=== PATIENT | female | born 1990 | race Caucasian/White ===

== ENCOUNTER → 2021-10-25 09:26 | Outpatient (BNVA) | payer BC, SELFPAY | PROVIDERS: Visit Provider Obstetrics & Gynecology | DX: Z36.87 Encounter for antenatal screening for uncertain dates (principal) | CPT/HCPCS: 76805 ==

== ENCOUNTER → 2021-10-30 13:04 | Outpatient (BNVA) | payer BC, MEDICAID, SELFPAY | PROVIDERS: Visit Provider Obstetrics & Gynecology | DX: O09.92 Supervision of high risk pregnancy, unspecified, second trimester (principal) | CPT/HCPCS: 80307 ==

== ENCOUNTER → 2021-11-03 10:07 | Outpatient (BNVA) | payer BC, MEDICAID, SELFPAY | PROVIDERS: Visit Provider Obstetrics & Gynecology | DX: Z34.90 Encounter for supervision of normal pregnancy, unspecified, unspecified trimester (principal) | CPT/HCPCS: 81000 ==

== ENCOUNTER → 2021-11-24 08:51 | Outpatient (BNVA) | payer BC, MEDICAID, SELFPAY | PROVIDERS: Visit Provider Obstetrics & Gynecology | DX: O09.90 Supervision of high risk pregnancy, unspecified, unspecified trimester (principal); Z3A.00 Weeks of gestation of pregnancy not specified | CPT/HCPCS: 81000; 82950 ==

== ENCOUNTER → 2021-12-19 09:46 | Outpatient (BNVA) | payer BC, MEDICAID, SELFPAY | PROVIDERS: Visit Provider Obstetrics & Gynecology | DX: O09.90 Supervision of high risk pregnancy, unspecified, unspecified trimester (principal); Z3A.00 Weeks of gestation of pregnancy not specified | CPT/HCPCS: 81000; 85027 ==

== ENCOUNTER → 2022-01-02 09:52 | Outpatient (BNVA) | payer BC, MEDICAID, SELFPAY | PROVIDERS: Visit Provider Obstetrics & Gynecology | DX: O09.90 Supervision of high risk pregnancy, unspecified, unspecified trimester (principal); Z3A.00 Weeks of gestation of pregnancy not specified | CPT/HCPCS: 81000 ==

== ENCOUNTER → 2022-01-19 10:30 | Outpatient (BNVA) | payer BC, MEDICAID, SELFPAY | PROVIDERS: Visit Provider Obstetrics & Gynecology | DX: O09.90 Supervision of high risk pregnancy, unspecified, unspecified trimester (principal); Z87.59 Personal history of other complications of pregnancy, childbirth and the puerperium; Z3A.00 Weeks of gestation of pregnancy not specified | CPT/HCPCS: 81000 ==

== ENCOUNTER 2022-01-26 14:02 | Outpatient (CLI) | payer BC, MEDICAID, SELFPAY ==
--- NOTE | 2022-01-26 14:24 | US_ITS ---
WS: [id number] BIOPHYSICAL PROFILE AMNIOTIC FLUID HISTORY: Z87.59 - Personal history of other complications of ... COMPARISON: 10/25/2021 Cardiac activity: 153 bpm. Cervix: closed. Placenta: Anterior, no previa or abruption. Placenta grade: 2 Parameters are as follows: Breathin Movement: 2 Tone: 2 Fluid volume: 2 Amniotic fluid index: 15.0 cm; largest vertical pocket 5.4 cm. US/US OB BPP wo NST 70019 IMPRESSION: 1. Biophysical profile score: 8/8. 2. Normal amniotic fluid index.
== END 2022-01-26 14:03 | disposition home or self-care (01) ==
LOC: RAD 14:03
PROVIDERS: Visit Provider Obstetrics & Gynecology
DX: Z87.59 Personal history of other complications of pregnancy, childbirth and the puerperium (principal)
CPT/HCPCS: 76819; 81000

== ENCOUNTER 2022-01-26 14:55 | Outpatient (CLI) | payer BC, MEDICAID, SELFPAY ==
[2022-01-26] MEDS: betamethasone susp 6 mg/mL 5 mL 12 MG IM (15:17)
== END 2022-01-26 14:56 | disposition home or self-care (01) ==
LOC: OPOB 14:58
PROVIDERS: Visit Provider Obstetrics & Gynecology
DX: O26.899 Other specified pregnancy related conditions, unspecified trimester (principal); Z3A.00 Weeks of gestation of pregnancy not specified
CPT/HCPCS: 96372; J0702

== ENCOUNTER 2022-01-27 14:20 | Outpatient (CLI) | payer BC, MEDICAID, SELFPAY ==
[2022-01-27 14:30] VITALS: BMI 34.7
[2022-01-27 14:33] VITALS: RESP 16; TEMP 36.7
[2022-01-27 14:38] VITALS: BP 130/78; PULSE 94
[2022-01-27 14:54] VITALS: BP 125/77; PULSE 102
[2022-01-27] MEDS: betamethasone susp 6 mg/mL 5 mL 12 MG IM (14:54)
[2022-01-27 15:14] VITALS: BP 125/77; PULSE 102; RESP 16
== END 2022-01-27 15:17 | disposition home or self-care (01) ==
LOC: OPOB 14:25 → OBGYN 14:26
PROVIDERS: Visit Provider Obstetrics & Gynecology
DX: O26.899 Other specified pregnancy related conditions, unspecified trimester (principal); Z3A.00 Weeks of gestation of pregnancy not specified
CPT/HCPCS: 59025; J0702

== ENCOUNTER 2022-01-30 10:51 | Outpatient (CLI) | payer BC, MEDICAID, SELFPAY ==
--- NOTE | 2022-01-30 10:15 | US_ITS ---
WS: [id number] BIOPHYSICAL PROFILE AMNIOTIC FLUID HISTORY: Evaluate for complications of . COMPARISON: 01/26/2022 Cardiac activity: 153 bpm. Cervix: closed. Placenta: Anterior, no previa or abruption. Placenta grade: 2 Parameters are as follows: Breathin Movement: 2 Tone: 2 Fluid volume: 2 Amniotic fluid index: 10.1 cm which is between the fifth and 50th percentiles. Largest vertical pocke t of amniotic fluid 4.6 cm. US/US OB BPP wo NST 20536 IMPRESSION: 1. Biophysical profile score: 8/8. 2. Normal amniotic fluid index.
== END 2022-01-30 10:52 | disposition home or self-care (01) ==
LOC: RAD 10:54
PROVIDERS: Visit Provider Obstetrics & Gynecology
DX: Z87.59 Personal history of other complications of pregnancy, childbirth and the puerperium (principal)
CPT/HCPCS: 76819; 81000

== ENCOUNTER 2022-02-06 09:44 | Outpatient (CLI) | payer BC, MEDICAID, SELFPAY ==
--- NOTE | 2022-02-06 10:15 | US_ITS ---
WS: [id number] BIOPHYSICAL PROFILE AMNIOTIC FLUID HISTORY: Prior complication. COMPARISON: 01/30/2022 Cardiac activity: 164 bpm. Cervix: closed. Placenta: Anterior, no previa. Placenta grade: 1 Parameters are as follows: Breathin Movement: 2 Tone: 2 Fluid volume: 2 Amniotic fluid index: 16.7 cm which is near the 50th percentile. Largest vertical pocket of amniotic fluid is 5.6 cm. US/US OB BPP wo NST 24167 IMPRESSION: 1. Biophysical profile score: 8/8. 2. Normal amniotic fluid index.
== END 2022-02-06 09:45 | disposition home or self-care (01) ==
PROVIDERS: Visit Provider Obstetrics & Gynecology
DX: Z87.59 Personal history of other complications of pregnancy, childbirth and the puerperium (principal)
CPT/HCPCS: 76819

== ENCOUNTER 2022-02-07 21:00 | Outpatient (CLI) | payer BC, MEDICAID, SELFPAY ==
[2022-02-07] VITALS (18 sets, daily range): BP systolic 121–137; BP diastolic 76–88; PULSE 87–123; RESP 17; O2SAT 97–98; BMI 36.4
[2022-02-07 21:32] LABS: Actim Prom Negative
[2022-02-07 21:32] LABS: Nitrazine Paper, PH Negative
--- NOTE | 2022-02-07 21:35 | USR_ITS ---
PROCEDURE INFORMATION: Exam: US Biophysical Profile Without Non-Stress Test Exam date and time: 02/07/2022 10:04 PM Age: 31 years old Clinical indication: Screening exam; Routine US screening of fetus; Third trimester (=28 weeks 0 days); ; Patient HX: Decreased movement TECHNIQUE: Imaging protocol: US biophysical profile without non-stress testing. COMPARISON: US OB BPP NST [id number] 02/06/2022 9:54 AM FINDINGS: Gestation: Single intrauterine gestation. heart rate: 133 bpm. Presentation: Cephalic presentation. Placenta: Anterior grade 1 placenta. Amniotic fluid index: 18.0 cm. BIOPHYSICAL PROFILE: breathing movement (BPP): 0 out of 2. No breathing motion visualized. body movement (BPP): 2 out of 2. tone (BPP): 2 out of 2. Amniotic fluid (BPP): 2 out of 2. MATERNAL ANATOMY: Cervix: The cervix is obscured by the head. US/US OB BPP NST 74182 IMPRESSION: 1. Biophysical profile score of 6/8. No breathing motion visualized.
[2022-02-07 22:01] LABS: Add Urine Culture? No; Bacteria Urine 2+ /hpf; Bilirubin Urine Neg (Negative); Blood Urine Neg (Negative); Glucose Urine UA Norm (Normal); Ketones Urine Negative (Negative); Leukocyte Esterase Urine 2+ (Negative); Nitrate Urine Negative (Negative); Protein Urine Neg (Negative); RBC Urine 0-4 /hpf (0-2); Squamous Epithelial Cell Urine 15-25 /hpf (0-5); Urine Appearance SL Hazy (CLEAR); Urine Color Yellow (Yellow); Urobilinogen Urine Norm (Negative); WBC Urine 55-80 /hpf (0-5); pH Urine 6 (5-7)
[2022-02-07] MEDS: NIFEdipine 10 mg Capsule 30 MG PO (23:38)
[2022-02-08] VITALS (77 sets, daily range): BP systolic 104–135; BP diastolic 57–81; PULSE 73–125; RESP 17; TEMP 36.4–36.5; O2SAT 97–100
[2022-02-08] MEDS: terbutaline 1 mg/mL INJ 0.25 MG SUBCUT (01:10)
[2022-02-08 01:41] LABS: Basophils % 0.2 %; Eosinophils # 0.1 10^3/uL (0.0-0.8); Eosinophils % 0.8 %; Hematocrit 36.4 % (37.0-47.0); Hemoglobin 12.3 g/dL (11.5-15.3); Lymphocytes # 3.8 10^3/uL (0.8-4.8); Lymphocytes % 23.5 %; Mean Corpuscular HGB Conc 33.8 g/dL (30.0-36.0); Mean Corpuscular Hemoglobin 28.9 pg (28.0-34.0); Mean Corpuscular Volume 85.4 fl (81-99); Mean Platelet Volume 11.3 fL (7.4-10.4); Monocytes # 1.1 10^3/uL (0.2-0.9); Neutrophils # 10.92 10^3/uL (1.8-7.7); Neutrophils % 67.9 %; Nucleated Red Blood Cells % 0 %; Platelet Count 322 10^3/cmm (130-400); Red Blood Count 4.26 10^6/uL (4.1-5.3); Red Cell Distribution Width 12.9 % (12.1-15.1); White Blood Count 16.1 10^3/uL (4.0-10.0)
[2022-02-08] MEDS: dextrose 5%-lactated ringers 1,000 ML 125 ML IV ×2 (01:54→12:13)
[2022-02-08] MEDS: ampicillin 2,000 MG in sodium chloride 0.9% (plus) 50 ML 100 MG IV (01:54)
[2022-02-08] MEDS: alum-mag-hydroxide-sime 30 mL UDC PO ×3 (01:56→13:07)
[2022-02-08] MEDS: betamethasone susp 6 mg/mL 5 mL 12 MG IM (02:29)
[2022-02-08] MEDS: ampicillin 1,000 MG in sodium chloride 0.9% (plus) 50 ML 100 MG IV ×2 (06:14→10:16)
[2022-02-08] MEDS: NIFEdipine 10 mg Capsule 30 MG PO (10:54)
--- NOTE | 2022-02-22 13:33 | P.SS_ITS ---
Short Stay Summary Providers Date of Admit/Discharge: 02/22/22 Attending Provider: Nicho Mac MD Chief Complaint: Decreased Movement, Possible SROM HPI History of Present Illness Diamond Waller is a 31 year old female Gestational age of 35 weeks 3 days came into labor and delivery triage complaining of decreased movements and some contractions Review of Systems General: Reports: 10 or more systems reviewed and unremarkable except in HPI and below Narrative: movement: no Const: Denies: fever(s) or chills Card: Denies: chest pain, palpitations, irregular heart rhythm or syncope Resp: Denies: dyspnea GI: Denies: abdominal pain, nausea or vomiting : Reports: pelvic pain (Pressure); Denies: flank pain, dysuria, urinary frequency or urinary urgency Musc: Denies: back pain or extremity swelling Skin/Breast: Denies: rash, pruritus, breast pain, nipple discharge or breast mass Neuro: Denies: headache(s), difficulty walking, dizziness or restless legs Psych: Denies: anxiety, depression or mood swings Endo: Denies: polyuria, tired all the time, cold intolerance or heat intolerance Calvin/Lymph: Denies: easy bruising, easy bleeding, petechiae or purpura All/Imm: Denies: urticaria Home Meds/Allergies Home Medications and Allergies Home Medications Medication Instructions Recorded Confirmed Type prenat.vits,beau,xsu-aoaz-mvspo 1 tab PO DAILY 12/19/21 02/20/22 History famotidine 20 mg tablet (Pepcid) 20 mg PO BID 01/26/22 02/20/22 History Allergies Allergy/AdvReac Type Severity Reaction Status Date / Time cefaclor [From [facility]] Allergy Severe rash and Verified 02/20/22 08:33 tingling in throat PFSH Acute PFSH: Family History Mother Diabetes Hyperlipidemia Hypertension Thyroid condition Grandmother Heart disease maternal Family/Other Breast cancer maternal cousins x3, age onset in 40's Denies family history of Colon cancer Ovarian cancer Clotting disorder Anesthesia complication Bleeding disorder Uterine cancer Stroke Social History Smoking and tobacco status: never smoked Alcohol intake: never Female Reproductive History: Date of last menstrual period: 06/06/21 : 17 Vitals/I&O/Wt Last Vital Signs Temp 97.7 F 02/08/22 12:00 Pulse 102 H 02/08/22 13:30 Resp 17 02/08/22 13:30 BP 121/57 02/08/22 13:30 Pulse Ox 97 02/08/22 13:30 Physical Exam Const: COMMON NORMALS: no acute distress and well nourished EXAM LIMITATIONS: no altered mental status GENERAL APPEARANCE: cooperative and well hydrated ORIENTATION/CONSCIOUSNESS: Yes awake, Yes oriented to person, Yes oriented to place and Yes oriented to time GI: COMMON NORMALS: Soft to palpation INSPECTION: Yes gravid abdomen PALPATION: Yes Soft to palpation and No Tenderness to palpation present (GI) : OB/EXTERNAL & SPECULUM: external exam normal; No no herpetic lesions MANUAL OB EXAM: dilated 5 cm, effaced 50% and station (-3) Neuro: SENSORIUM/ORIENTATION: Yes oriented to person, Yes oriented to place and Yes oriented to time Hospital Course Admission Diagnoses False labor Hospital Course Mrs. Waller 31-year-old female came to labor and delivery referring decreased movement, some contractions. She was on observation and treated for labor. No cervical changes were noted. SSS Data Data Completed and Pending: Completed Studies During Hospitalization Category Date Time Status US OB BPP w o NST 95870 Stat Ultrasound 02/07/22 21:35 Completed Discharge Plan Discharge Patient Disposition: Home Prescriptions: Continued prenat.vits,beau,mus-etlq-byifi Tablet 1 tab PO DAILY 0RF Label Comments: when able to hold down famotidine [Pepcid] 20 mg tablet 20 mg PO BID 0RF Discharge Orders: Discharge Order (Routine); Ordered 02/08/22 Ordered By: Nicho Mac Referrals: Nicho Mac MD [Physician] - 02/13/22 9:15 am (You have an appointment with Dr. Mac on Sunday February 13, 2022 at 9:15 a.m. You also have an appointment for an NST and BPP ultrasound to follow appointment. ) Patient Instructions: Labor (DC), Movement (DC), Kick Counts in (DC), OB Undelivered Discharge Activity Restrictions/Additional Instructions: Keep all scheduled appointments with Dr. Mac. If contractions begin again and are painful, return to OB for evaluation. If you are having decreased movement, return to OB. Return to OB if your water breaks or if you have vaginal bleeding. Call [facility] or OB department for any questions or concerns. Discharge Date/Time: 02/08/22 13:29 Attestations Medical Necessity Statement*: In my professional opinion per observation diagnosis. Time Spent in Patient Care*: greater than 30 min Quality Metrics Clinical Quality Measures: [ No reported AMI, CVA or VTE this stay ] Coding Level of Care Code Acute Tank Car Cleaner for Franca De Leon
== END 2022-02-08 13:29 | disposition home or self-care (01) ==
LOC: OPOB 21:01 → OBGYN 02-08 01:04
PROVIDERS: Visit Provider Obstetrics & Gynecology
DX: O36.8190 Decreased fetal movements, unspecified trimester, not applicable or unspecified (principal); Z3A.00 Weeks of gestation of pregnancy not specified; N89.8 Other specified noninflammatory disorders of vagina
CPT/HCPCS: 36415; 59025; 76819; 81001; 83986; 84112; 85025; 96372; 99211; J0290; J0702; J3105

== ENCOUNTER 2022-02-09 23:27 | Outpatient (CLI) | payer BC, MEDICAID, SELFPAY ==
[2022-02-08 08:00] VITALS: TEMP 36.4
[2022-02-08 12:00] VITALS: TEMP 36.5
[2022-02-09 23:30] VITALS: BMI 36.6
[2022-02-09 23:34] VITALS: BP 136/82; PULSE 91; TEMP 36.7
[2022-02-09 23:50] VITALS: BP 126/77; PULSE 76
[2022-02-10 00:04] LABS: Add Urine Culture? No; Bacteria Urine TRACE /hpf; Bilirubin Urine Neg (Negative); Blood Urine Neg (Negative); Glucose Urine UA Norm (Normal); Ketones Urine Negative (Negative); Leukocyte Esterase Urine Negative (Negative); Mucus Urine 1+ /hpf; Nitrate Urine Negative (Negative); Protein Urine Neg (Negative); RBC Urine 0-4 /hpf (0-2); Urine Appearance Clear (CLEAR); Urine Color Yellow (Yellow); Urobilinogen Urine Norm (Negative); pH Urine 6 (5-7)
[2022-02-10 00:05] VITALS: BP 130/73; PULSE 85
[2022-02-10 00:19] VITALS: BP 123/74; PULSE 76
[2022-02-10 00:34] VITALS: BP 119/73; PULSE 71
[2022-02-10 00:45] VITALS: BP 119/73; PULSE 71
== END 2022-02-10 00:51 | disposition home or self-care (01) ==
LOC: OPOB 23:28 → OBGYN 23:40
PROVIDERS: Visit Provider Obstetrics & Gynecology
DX: O26.899 Other specified pregnancy related conditions, unspecified trimester (principal); Z3A.00 Weeks of gestation of pregnancy not specified; R10.2 Pelvic and perineal pain; M54.9 Dorsalgia, unspecified
CPT/HCPCS: 59025; 81001; 99211

== ENCOUNTER 2022-02-13 10:08 | Outpatient (CLI) | payer BC, MEDICAID, SELFPAY ==
--- NOTE | 2022-02-13 10:00 | US_ITS ---
WS: [id number] BIOPHYSICAL PROFILE AMNIOTIC FLUID HISTORY: History of complicated pregnancies. COMPARISON: 02/07/2022 Cardiac activity: 138 bpm. Cervix: Obscured by the head. Parameters are as follows: Breathin Movement: 2 Tone: 2 Fluid volume: 2 ML fluid index: 12.9 cm which is near the 50th percentile. Largest vertical pocket of amniotic fluid 4.4 cm. US/US OB BPP wo NST 08635 IMPRESSION: 1. Biophysical profile score: 8/8. 2. Normal amniotic fluid index.
== END 2022-02-13 10:09 | disposition home or self-care (01) ==
PROVIDERS: Visit Provider Obstetrics & Gynecology
DX: Z87.59 Personal history of other complications of pregnancy, childbirth and the puerperium (principal)
CPT/HCPCS: 76819; 81000; 87081

== ENCOUNTER 2022-02-15 12:18 | Outpatient (CLI) | payer BC, MEDICAID, SELFPAY ==
[2022-02-15] VITALS (7 sets, daily range): BP systolic 115–125; BP diastolic 67–72; PULSE 85–94; RESP 17; BMI 35.9
--- NOTE | 2022-02-15 13:06 | US_ITS ---
WS: [id number] BIOPHYSICAL PROFILE AMNIOTIC FLUID HISTORY: decreased movement COMPARISON: 02/13/2022 Cardiac activity: 138 bpm. Cervix: closed. Placenta: Anterior, no previa or abruption. Placenta grade: 1 Parameters are as follows: Breathin Movement: 2 Tone: 2 Fluid volume: 2 Amniotic fluid index: 14.9 cm. Near the 50th percentile. Largest vertical pocket of amniotic fluid is 5.6 cm. US/US OB BPP wo NST 51891 IMPRESSION: 1. Biophysical profile score: 8/8. 2. Normal amniotic fluid index.
== END 2022-02-15 15:00 | disposition home or self-care (01) ==
LOC: OPOB 12:19 → OBGYN 12:20
PROVIDERS: Visit Provider Obstetrics & Gynecology
DX: O36.8190 Decreased fetal movements, unspecified trimester, not applicable or unspecified (principal); Z3A.00 Weeks of gestation of pregnancy not specified
CPT/HCPCS: 59025; 76819; 83986; 99211

== ENCOUNTER 2022-02-20 | Outpatient (CLI) | payer BC, MEDICAID, SELFPAY | END 2022-02-20 23:59 | disposition home or self-care (01) | LOC: RAD 03-12 16:37 | PROVIDERS: Visit Provider Obstetrics & Gynecology | DX: O09.90 Supervision of high risk pregnancy, unspecified, unspecified trimester (principal) | CPT/HCPCS: 81000 ==

== ENCOUNTER 2022-02-20 19:13 | Inpatient (IN) | payer BC, MEDICAID, SELFPAY ==
[2022-02-20] VITALS (22 sets, daily range): BP systolic 108–140; BP diastolic 57–84; PULSE 67–87; RESP 16–17; TEMP 35.1–36.6; O2SAT 99; BMI 36.2
--- NOTE | 2022-02-20 10:28 | US_ITS ---
WS: [email or web address] BIOPHYSICAL PROFILE AMNIOTIC FLUID HISTORY: well-being. COMPARISON: 02/15/2022 Cardiac activity: 131 bpm. Cervix: Not visualized. Completely obscured by the head. Placenta: Anterior, no previa or abruption. Placenta grade: 1 Vertex presentation. Parameters are as follows: Breathin Movement: 2 Tone: 2 Fluid volume: 2 Amniotic fluid index: 14.3 cm which is at the 50th percentile. Largest vertical pocket of amniotic fl uid is 5.0 cm. US/US OB BPP wo NST 96709 IMPRESSION: 1. Biophysical profile score: 8/8. 2. Normal amniotic fluid index.
[2022-02-20] MEDS: alum-mag-hydroxide-sime 30 mL UDC PO ×3 (10:44→18:19)
[2022-02-20 10:48] LABS: Basophils # 0.1 10^3/uL (0.0-0.1); Basophils % 0.5 %; Eosinophils # 0.1 10^3/uL (0.0-0.8); Eosinophils % 0.8 %; Hematocrit 37.8 % (37.0-47.0); Hemoglobin 12.4 g/dL (11.5-15.3); Lymphocytes # 2.2 10^3/uL (0.8-4.8); Lymphocytes % 16.9 %; Mean Corpuscular HGB Conc 32.8 g/dL (30.0-36.0); Mean Corpuscular Hemoglobin 29.2 pg (28.0-34.0); Mean Corpuscular Volume 88.9 fl (81-99); Mean Platelet Volume 11.4 fL (7.4-10.4); Monocytes % 7.8 %; Neutrophils # 9.55 10^3/uL (1.8-7.7); Neutrophils % 73.5 %; Nucleated Red Blood Cells % 0 %; Platelet Count 312 10^3/cmm (130-400); Red Blood Count 4.25 10^6/uL (4.1-5.3); Red Cell Distribution Width 13.5 % (12.1-15.1)
[2022-02-20] MEDS: fentaNYL 50 mcg/mL INJ 2mL IVP (18:26)
[2022-02-20] MEDS: oxytocin 30 UNIT/500 ML BAG 600 UNIT IV (19:06)
[2022-02-20] MEDS: lidocaine 2% INJ 20 mL INJECTION (19:10)
--- NOTE | 2022-02-20 19:42 | PM.DELIVERY ---
Delivery Note: Date of delivery: February 20, 2022 Pre-delivery diagnoses: iup@37 weeks, active labor Post-delivery diagnoses: same-delivered Procedure: Delivering Physician: Carol Estimated blood loss (mL): 15 Findings: term male in the NATASHA presentation with a compound right hand Pre-Delivery Course: The patient was admitted in active labor. She had AROM performed at 6-7 cm dilation. She had complete cervical dilation and began to push. Delivery: The patient had complete cervical dilation and began to push. The head delivered in the NATASHA with a compound right hand position over an intact perineum under no anesthesia. The nose and mouth were bulb suctioned. The shoulders and body delivered atraumatically. The baby was placed onto the mother's abdomen. The cord was clamped and cut. Cord blood was obtained. The placenta delivered spontaneously. It was inspected and found to be intact. Inspection of the perineum revealed a small first-degree laceration. This was repaired with a single subcuticular stitch. Estimated blood loss 15 mL. Apgars on baby were 8 at 1 minute and 8 at 5 minutes. Weight of baby is 6 pounds 4 ounces. Mother and baby were stable post delivery. History History History 17 Term 0 Miscarriages/Ectopic 14 2 Living Children 1 Coding Level of Care Code Acute Field Identification Specialist for Chg Moises
[2022-02-20] MEDS: ibuprofen 800 mg tablet PO (21:17)
[2022-02-20] MEDS: benzocaine-menthol 78 gm Canister 1 SPRAY TOPICAL (21:18)
[2022-02-20] MEDS: lanolin oint 7 gm 1 APPLIC TOPICAL (21:18)
[2022-02-21] VITALS (8 sets, daily range): BP systolic 107–122; BP diastolic 58–78; PULSE 68–84; TEMP 36.9–37.1
[2022-02-21] MEDS: acetaminophen 325 mg Tablet 650 MG PO (03:31)
[2022-02-21 09:21] LABS: Hematocrit 32.2 % (37.0-47.0); Hemoglobin 10.5 g/dL (11.5-15.3); Mean Corpuscular HGB Conc 32.6 g/dL (30.0-36.0); Mean Corpuscular Hemoglobin 28.5 pg (28.0-34.0); Mean Corpuscular Volume 87.5 fl (81-99); Mean Platelet Volume 11.7 fL (7.4-10.4); Platelet Count 282 10^3/cmm (130-400); Red Blood Count 3.68 10^6/uL (4.1-5.3); Red Cell Distribution Width 13.3 % (12.1-15.1); White Blood Count 12.3 10^3/uL (4.0-10.0)
--- NOTE | 2022-02-21 09:21 | PM.PN ---
Vitals/I&O/Wt Last Vital Signs Temp 97.9 F 02/20/22 23:20 Pulse 70 02/21/22 05:43 Resp 16 02/20/22 18:26 BP 116/71 02/21/22 05:43 Pulse Ox 99 02/20/22 14:49 02/20/22 02/21/22 02/21/22 22:59 06:59 14:59 Output Total 400 / 400 Balance -400 / -400 Weight last 48 hrs Weight 218 lb Physical Exam Narrative: The patient has no concerns. Pain is well controlled. normal lochia. Breast feeding. Const: COMMON NORMALS: no acute distress, patient oriented x3, no limitations, healthy appearing, alert and well nourished GENERAL APPEARANCE: cooperative, comfortable, well kempt and well developed ORIENTATION/CONSCIOUSNESS: Yes awake, Yes oriented to person, Yes oriented to place and Yes oriented to time Resp: COMMON NORMALS: normal respiratory effort EFFORT & INSPECTION: Yes able to speak in complete sentences GI: COMMON NORMALS: Soft to palpation and non-tender PALPATION: Yes Soft to palpation Extremity: COMMON NORMALS: no calf tenderness Neuro: COMMON NORMALS: patient oriented x3 SENSORIUM/ORIENTATION: Yes alert, Yes oriented to person, Yes oriented to place and Yes oriented to time Psych: APPEARANCE: Yes well kempt Data : 02/20/22 10:35 Attestations Medical Necessity Statement*: she will go home tomorrow Coding Level of Care Code Acute Instructional Technology Instructor for Franca De Leon
[2022-02-21] MEDS: prenatal vitamin Capsule 1 CAP PO (09:58)
[2022-02-21] MEDS: docusate sodium 100 mg Capsule PO (09:58)
[2022-02-21] MEDS: ibuprofen 800 mg tablet PO ×3 (09:58→21:23)
[2022-02-21] MEDS: famotidine 20 mg Tablet PO (09:58)
[2022-02-22 04:07] VITALS: BP 103/56; PULSE 62
--- NOTE | 2022-02-22 07:51 | PM.DCS ---
Discharge Providers Date of Admission: 02/20/22 19:13 Date of Discharge: February 22, 2022 Attending Provider at Admission: Gila Medina MD Attending Provider at Discharge: Gila Medina MD Reason for Visit Reason for Visit: Contractions Hospital Course Hospital Course The patient was admitted in active labor. She had spontaneous delivery of a term male . she did well and was ready for discharge on day #2 Physical Exam Narrative: no concerns this morning. Const: COMMON NORMALS: no acute distress, patient oriented x3, no limitations, alert and well nourished GENERAL APPEARANCE: cooperative, comfortable, well kempt and well developed Resp: COMMON NORMALS: normal respiratory effort EFFORT & INSPECTION: Yes able to speak in complete sentences GI: COMMON NORMALS: Soft to palpation and non-tender PALPATION: Yes Soft to palpation Extremity: COMMON NORMALS: no calf tenderness Neuro: COMMON NORMALS: patient oriented x3 SENSORIUM/ORIENTATION: Yes alert Psych: APPEARANCE: Yes well kempt Discharge Data Studies Completed and Pending Completed Studies During Hospitalization Category Date Time Status US OB BPP wo NST 48511 Stat Ultrasound 02/20/22 10:28 Completed Radiology Impressions Obstetrics US/Biophysical Profile 02/20/22 10:28 IMPRESSION: 1. Biophysical profile score: 8/8. 2. Normal amniotic fluid index. Laboratory Results WBC 12.3 10^3/uL (4.0-10.0) H 02/21/22 08:30 RBC 3.68 10^6/uL (4.1-5.3) L 02/21/22 08:30 Hgb 10.5 g/dL (11.5-15.3) L 02/21/22 08:30 Hct 32.2 % (37.0-47.0) L 02/21/22 08:30 MCV 87.5 fl (81-99) 02/21/22 08:30 MCH 28.5 pg (28.0-34.0) 02/21/22 08:30 MCHC 32.6 g/dL (30.0-36.0) 02/21/22 08:30 RDW 13.3 % (12.1-15.1) 02/21/22 08:30 Plt Count 282 10^3/cmm (130-400) 02/21/22 08:30 MPV 11.7 fL (7.4-10.4) H 02/21/22 08:30 Neut % (Auto) 73.5 % 02/20/22 10:35 Lymph % (Auto) 16.9 % 02/20/22 10:35 [place] % (Auto) 7.8 % 02/20/22 10:35 Eos % (Auto) 0.8 % 02/20/22 10:35 Baso % (Auto) 0.5 % 02/20/22 10:35 Neut # (Auto) 9.55 10^3/uL (1.8-7.7) H 02/20/22 10:35 Lymph # (Auto) 2.2 10^3/uL (0.8-4.8) 02/20/22 10:35 [place] # (Auto) 1.0 10^3/uL (0.2-0.9) H 02/20/22 10:35 Eos # (Auto) 0.1 10^3/uL (0.0-0.8) 02/20/22 10:35 Baso # (Auto) 0.1 10^3/uL (0.0-0.1) 02/20/22 10:35 Nucleated RBC % (auto) 0 % 02/20/22 10:35 Nucleated RBCs # 0.0 /100WBC 02/20/22 10:35 Vitals Last Vital Signs Temp 98.4 F 02/21/22 15:31 Pulse 62 02/22/22 04:07 Resp 16 02/20/22 18:26 BP 103/56 02/22/22 04:07 Pulse Ox 99 02/20/22 14:49 Discharge Plan Discharge Patient Disposition: Home Condition: Stable Prescriptions: Continued prenat.vits,beau,olj-ttyp-ggaxi Tablet 1 tab PO DAILY 0RF Label Comments: when able to hold down famotidine [Pepcid] 20 mg tablet 20 mg PO BID 0RF Discharge Orders: Discharge Order (Routine); Ordered 02/22/22 Ordered By: Gila Medina Patient Instructions: Opioid Safety Discharge Attestations Time Spent in Discharge Care*: less than 30 min Quality Metrics Clinical Quality Measures [ No reported AMI, CVA or VTE this stay] Coding Level of Care Code Acute Chg FW DC note
[2022-02-22] MEDS: famotidine 20 mg Tablet PO (07:52)
[2022-02-22] MEDS: ibuprofen 800 mg tablet PO (07:52)
[2022-02-22] MEDS: docusate sodium 100 mg Capsule PO (07:53)
[2022-02-22] MEDS: prenatal vitamin Capsule 1 CAP PO (07:53)
[2022-02-22] MEDS: alum-mag-hydroxide-sime 30 mL UDC PO (07:54)
[2022-02-22 11:19] VITALS: BP 123/76; PULSE 83; RESP 18; TEMP 36.9
[2022-02-22 11:45] VITALS: BP 123/76; PULSE 83; RESP 18; TEMP 36.9
== END 2022-02-22 11:35 | disposition home or self-care (01) | DRG 807 ==
LOC: OPOB 19:14 → OBGYN 19:14
PROVIDERS: Obstetrics & Gynecology; Admitting Provider Obstetrics & Gynecology; Visit Provider Obstetrics & Gynecology
DX: O70.0 First degree perineal laceration during delivery (principal); Z37.0 Single live birth; Z3A.37 37 weeks gestation of pregnancy; Z87.891 Personal history of nicotine dependence
CPT/HCPCS: 36415; 59025; 59409; 76815; 76819; 85025; 85027; 96374; 99211; J3010

== ENCOUNTER 2022-07-17 14:18 | Outpatient (CLI) | payer BC, MEDICAID, SELFPAY ==
--- NOTE | 2022-07-17 14:40 | MM_ITS ---
WS: [email or web address] BILATERAL 3D TOMOSYNTHESIS DIGITAL DIAGNOSTIC MAMMOGRAPHY WITH CAD CLINICAL INFORMATION: N60.19 - Diffuse cystic mastopathy of unspecified breast HISTORY: Bilateral breast soreness and lumps. COMPARISON: None. TECHNIQUE: Bilateral CC, MLO, and ML views. FINDINGS: Scattered fibroglandular densities bilaterally. Palpable marker is bilateral breasts. No definite und erlying mammographic abnormalities. Ultrasound is pending. ULTRASOUND BREAST BILATERAL TECHNIQUE: Ultrasound bilateral breast focused area of concern. CLINICAL INFORMATION: N60.19 - Diffuse cystic mastopathy of unspecified breast FINDINGS: RIGHT BREAST: Ultrasound RIGHT breast at the 2:00 position patient directed. No underlying suspicious cystic or solid lesions. No lesions to target for biopsy. Normal underlying breast tissue. LEFT BREAST: Ultrasound LEFT breast at the 2:00 position patient directed. No underlying suspicious c ystic or solid lesions. No lesions to target for biopsy. Normal underlying breast tissue. Normal lymph nodes LEFT axilla. MM/[place] [id number] IMPRESSION: BI-RADS: 2-Benign FOLLOW UP: Age 39 Recommend annual screening mammography age 40.
== END 2022-07-17 14:19 | disposition home or self-care (01) ==
LOC: RAD 14:19
PROVIDERS: PCP Registered Nurse; Visit Provider Registered Nurse
DX: N60.19 Diffuse cystic mastopathy of unspecified breast (principal); N63.12 Unspecified lump in the right breast, upper inner quadrant; N63.21 Unspecified lump in the left breast, upper outer quadrant
CPT/HCPCS: 76642; 77062; G0279

== ENCOUNTER 2023-04-11 09:36 | Emergency (ER) | payer BC, MEDICAID, SELFPAY ==
[2023-04-11 09:55] VITALS: BMI 39.1
[2023-04-11 09:58] VITALS: BP 104/72; PULSE 84; RESP 15; TEMP 36.6; O2SAT 99
--- NOTE | 2023-04-11 10:42 | PC.PHAR ---
pt states she hasnt been on the nuvaring since the Mar- she has an appt apr 30 2023 to get a new rx and restart-pt states she hasnt taken bupropion xl 300mg daily since december rx last filled 12/19/22 30d/s-pt states she has only been taking ibuprofen prn
[2023-04-11 11:55] LABS: Basophils # 0.1 10^3/uL (0.0-0.1); Basophils % 1.3 %; Eosinophils # 0.2 10^3/uL (0.0-0.8); Eosinophils % 1.9 %; Hematocrit 45.2 % (36-47); Lymphocytes # 2.1 10^3/uL (0.8-4.8); Lymphocytes % 26.8 %; Mean Corpuscular HGB Conc 31.4 g/dL (30-55); Mean Corpuscular Hemoglobin 28.1 pg (27-33); Mean Corpuscular Volume 89.3 fl (85-98); Mean Platelet Volume 12.2 fL (7.4-10.4); Monocytes # 0.5 10^3/uL (0.2-0.9); Monocytes % 6.1 %; Neutrophils # 5.04 10^3/uL (1.8-7.7); Neutrophils % 63.6 %; Nucleated Red Blood Cells % 0 %; Platelet Count 323 10^3/cmm (157-399); Red Blood Count 5.06 10^6/uL (3.85-5.65); Red Cell Distribution Width 13.9 % (12.1-15.1); White Blood Count 7.91 10^3/uL (3.29-11.43)
[2023-04-11 11:55] LABS: Add Urine Microscopic? NO; Charge for UA Resulting for Rev
[2023-04-11 11:57] LABS: Bilirubin Urine Neg (Negative); Blood Urine Neg (Negative); Glucose Urine UA Norm (Normal); Ketones Urine Negative (Negative); Leukocyte Esterase Urine Negative (Negative); Nitrate Urine Negative (Negative); Protein Urine Neg (Negative); Specific Gravity, Urine 1.005 (1.005-1.030); Urine Appearance Clear (CLEAR); Urine Color Yellow (Yellow); Urobilinogen Urine Norm (Negative); pH Urine 6.5 (5-7)
[2023-04-11 12:03] LABS: HCG, Serum Qual Negative (Negative)
[2023-04-11 12:10] LABS: Alanine Aminotransferase 13 U/L (0-33); Albumin Level 4.2 g/dL (3.5-5.2); Alkaline Phosphatase 91 U/L (35-105); Anion Gap 13.4 (5-19); Aspartate Amino Transferase 16 U/L (0-32); Blood Urea Nitrogen 6 mg/dL (6-20); Calcium 9.1 mg/dL (8.5-10.5); Carbon Dioxide 25 mmol/L (22-29); Chloride 104 mmol/L (98-107); Globulin 2.9 g/dL (1.3-4.6); Glomerular Filtration Rate 51.7 mL/min (90-130); Glucose 86 mg/dL (65-115); Osmolality Calculated 283 mOsm/kg (285-295); Potassium 4.4 mmol/L (3.5-5.1); Sodium 138 mmol/L (136-145); Total Bilirubin 0.3 mg/dL (0.15-1.2); Total Protein 7.1 g/dL (6.6-8.7)
--- NOTE | 2023-04-11 12:26 | CT_ITS ---
WS: [email or web address] CT HEAD NONCONTRAST HISTORY: headache TECHNIQUE: Contiguous axial imaging performed through the brain in 2.5 mm imaging. Bone and soft tiss ue windows. Sagittal and coronal reformats reviewed. All CT scans at [facility] use at least one of these dose optimization techniques: automated exposure control; mA and/or kV adjustment per pa tient size (includes targeted exams where dose is matched to clinical indication); or iterative recon struction. DLP: 1019.48 mGy.cm COMPARISON: None available. No acute intracranial hemorrhage, midline shift or mass effect. No atrophy or prior infarcts or herniation. Ventricles: Normal size with no hydrocephalus. Paranasal sinuses: As visualized are clear. Mastoid air cells: Well pneumatized. Calvarium and scalp: Skull is intact with no soft tissue edema or swelling. IMPRESSION: Negative head CT.
[2023-04-11] MEDS: diphenhydrAMINE 50 mg/mL SDV 1mL 25 MG IVP (12:36)
[2023-04-11] MEDS: metoclopramide 5 mg/mL SDV 2 mL 10 MG IVP (12:37)
[2023-04-11] MEDS: dexamethasone 4 mg/mL INJ IVP (12:39)
--- NOTE | 2023-04-11 12:47 | W.ED.HA ---
HPI - Headache General: Chief Complaint: Headache Stated Complaint: migrane/blurry vison Time Seen by Provider: 04/11/23 09:56 History of Present Illness: Patient is in today for headache x3 weeks. Patient reports that she has had headaches off and on before but this 1 seems to just be hanging on. She reports that she has not had any head injury. She reports that sometimes her vision feels a little blurred. She denies fever, chills, nausea, vomiting. She reports coming off her control approximately a month ago because she was out. She states that she has been using Tylenol and Motrin to try and help the headache with only little relief. She denies any possibility of . Associated symptoms: Deny chest pain, fever(s), nausea or vomiting Review of Systems Const: Denies: fever(s) or chills Card: Denies: chest pain or palpitations Resp: Denies: dyspnea, productive cough or non-productive cough GI: Denies: abdominal pain, nausea or vomiting : Denies: flank pain, difficulty voiding or dysuria Musc: Denies: neck pain or back pain Neuro: Reports: headache(s) PFS ED PFSH: Medical History PCOS (polycystic ovarian syndrome) Family History Mother Diabetes Hyperlipidemia Hypertension Thyroid condition Grandmother Heart disease maternal Family/Other Breast cancer maternal cousins x3, age onset in 40's Denies family history of Colon cancer Ovarian cancer Clotting disorder Anesthesia complication Bleeding disorder Uterine cancer Stroke Social History Smoking and tobacco status: current every day smoker Alcohol intake: never Substance/Drug Use: never Adopted: No Caregiver/support person: No Lives independently: No Household members: spouse Marital status: service: No Current occupational status: unemployed Sexually active: Yes Do you think of yourself as: Straight/Heterosexual Current gender identity: Female Female Reproductive History: Date of last menstrual period: 03/21/23 Physical Exam Const: COMMON NORMALS: no acute distress, patient oriented x3 and alert HENMT: COMMON NORMALS: normocephalic, EAC's normal, Normal nasal mucous membranes and turbinates present, moist oral mucous membranes and dentition normal HEAD & SCALP: normocephalic NOSE: Normal nasal mucous membranes and turbinates present EXTERNAL AUDITORY CANAL: EAC's normal Eye: COMMON NORMALS: Equal, round and reactive pupils present, EOMs intact bilaterally and conjunctivae normal CONJUNCTIVA: Yes conjunctivae normal PUPIL: Yes Equal, round and reactive pupils present Neck/C-Spine: COMMON NORMALS: no JVD Resp: COMMON NORMALS: normal respiratory effort, No use of accessory muscles and clear to auscultation bilaterally AUSCULTATION: clear to auscultation bilaterally Cardio: COMMON NORMALS: no JVD, regular rate, regular rhythm, S1 normal heart sound present and S2 normal heart sound present RATE: regular rate RHYTHM: regular rhythm HEART SOUNDS: S1 normal heart sound present and S2 normal heart sound present Neuro: COMMON NORMALS: patient oriented x3, CN's II-XII intact bilaterally, moves all extremities, no focal motor deficits and no sensory deficits noted SENSORIUM/ORIENTATION: Yes alert Course Vital Signs: Vital signs: Vital Signs Temperature 97.9 F 04/11/23 09:58 Pulse Rate 82 04/11/23 13:10 Respiratory Rate 15 04/11/23 09:58 Blood Pressure 123/77 04/11/23 13:10 Pulse Oximetry 98 04/11/23 13:10 Oxygen Delivery Me thod Room Air 04/11/23 13:10 MDM - Headache Medical Decision Making Consider migraine, cluster headache, sinusitis., Intracranial abnormality. CT scan given the duration of headache and reports of vision disturbance. Labs essentially unremarkable. With the exception of an elevated creatinine level 1.2 Patient treated with IV fluids, Benadryl, Reglan, Decadron to try and help with her headache symptoms. CT scan is negative for any acute intracranial abnormalities. Labs are essentially unremarkable with the exception of a slightly elevated creatinine which has been an issue for the patient in the past. Discussed with her the needs for maintaining adequate hydration. Continue follow-up with primary care provider for continued monitoring of elevated creatinine. Patient reports headache improvement from a 5 on a 0-to-10 scale down to a 1. She states that she is feeling much better. She does have an upcoming appointment with neurology on the . She would like to be discharged home at this time. Advised patient to continue follow-up with primary care provider also keep her appointment with neurology. Return to the ER for any new or worsening symptoms. Patient verbalized understanding of all instruction. Patient is calling her spouse to come get her. Patient is discharged in stable condition Lab Data 04/11/23 10:16 04/11/23 10:16 Laboratory Results WBC 7.91 10^3/uL (3.29-11.43) 04/11/23 10:16 RBC 5.06 10^6/uL (3.85-5.65) 04/11/23 10:16 Hgb 14.20 g/dL (11.27-16.99) 04/11/23 10:16 Hct 45.2 % (36-47) 04/11/23 10:16 MCV 89.3 fl (85-98) 04/11/23 10:16 MCH 28.1 pg (27-33) 04/11/23 10:16 MCHC 31.4 g/dL (30-55) 04/11/23 10:16 RDW 13.9 % (12.1-15.1) 04/11/23 10:16 Plt Count 323 10^3/cmm (157-399) 04/11/23 10:16 MPV 12.2 fL (7.4-10.4) H 04/11/23 10:16 Neut % (Auto) 63.6 % 04/11/23 10:16 Lymph % (Auto) 26.8 % 04/11/23 10:16 [place] % (Auto) 6.1 % 04/11/23 10:16 Eos % (Auto) 1.9 % 04/11/23 10:16 Baso % (Auto) 1.3 % 04/11/23 10:16 Neut # (Auto) 5.04 10^3/uL (1.8-7.7) 04/11/23 10:16 Lymph # (Auto) 2.1 10^3/uL (0.8-4.8) 04/11/23 10:16 [place] # (Auto) 0.5 10^3/uL (0.2-0.9) 04/11/23 10:16 Eos # (Auto) 0.2 10^3/uL (0.0-0.8) 04/11/23 10:16 Baso # (Auto) 0.1 10^3/uL (0.0-0.1) 04/11/23 10:16 Nucleated RBC % (auto) 0 % 04/11/23 10:16 Nucleated RBCs # 0.0 /100WBC 04/11/23 10:16 Sodium 138 mmol/L (136-145) 04/11/23 10:16 Potassium 4.4 mmol/L (3.5-5.1) 04/11/23 10:16 Chloride 104 mmol/L (98-107) 04/11/23 10:16 Carbon Dioxide 25 mmol/L (22-29) 04/11/23 10:16 Anion Gap 13.4 (5-19) 04/11/23 10:16 BUN 6 mg/dL (6-20) 04/11/23 10:16 Creatinine 1.2 mg/dL (0.5-0.9) H 04/11/23 10:16 GFR Calculation 51.7 mL/min (90-130) L 04/11/23 10:16 Glucose 86 mg/dL (65-115) 04/11/23 10:16 Calculated Osmolality 283 mOsm/kg (285-295) L 04/11/23 10:16 Calcium 9.1 mg/dL (8.5-10.5) 04/11/23 10:16 Total Bilirubin 0.3 mg/dL (0.15-1.2) 04/11/23 10:16 AST 16 U/L (0-32) 04/11/23 10:16 ALT 13 U/L (0-33) 04/11/23 10:16 Alkaline Phosphatase 91 U/L (35-105) 04/11/23 10:16 Total Protein 7.1 g/dL (6.6-8.7) 04/11/23 10:16 Albumin 4.2 g/dL (3.5-5.2) 04/11/23 10:16 Globulin 2.9 g/dL (1.3-4.6) 04/11/23 10:16 HCG, Qual Negative (Negative) 04/11/23 10:16 Urine Color Yellow (Yellow) 04/11/23 10:54 Urine Appearance Clear (CLEAR) 04/11/23 10:54 Urine pH 6.5 (5-7) 04/11/23 10:54 Ur Specific [place] 1.005 (1.005-1.030) 04/11/23 10:54 Urine Protein Neg (Negative) 04/11/23 10:54 Urine Glucose (UA) Norm (Normal) 04/11/23 10:54 Urine Ketones Negative (Negative) 04/11/23 10:54 Urine Blood Neg (Negative) 04/11/23 10:54 Urine Nitrate Negative (Negative) 04/11/23 10:54 Urine Bilirubin Neg (Negative) 04/11/23 10:54 Urine Urobilinogen Norm mg/dL (Negative) 04/11/23 10:54 Ur Leukocyte Esterase Negative (Negative) 04/11/23 10:54 Discharge Plan Discharge Patient Disposition: Home Clinical Impression: Headache Condition: Stable Prescriptions: No Action ibuprofen 200 mg Tablet 400 - 600 mg PO Q6H PRN (Reason: Pain) Discharge Orders: Discharge ED (Routine); Ordered 04/11/23 Ordered By: Jocy Nguyen Discharge Diet: Usual diet Discharge Activity: Resume usual activity Patient Instructions: Headache Activity Restrictions/Additional Instructions: Your CT scan today was negative for any acute abnormalities or changes. Your kidney function is slightly elevated. Make sure that you are staying well-hydrated and following up with your primary care provider for continued monitoring of this. Keep upcoming appointment with neurology for your headaches. Return to ER for any new or worsening symptoms. Coding Level of Care Code ED Intranet Developer for Franca De Leon
[2023-04-11] MEDS: sodium chloride 0.9% 1,000 ML 999 ML IV (12:50)
[2023-04-11 13:10] VITALS: BP 123/77; PULSE 82; O2SAT 98
[2023-04-11 13:40] VITALS: BP 137/85; PULSE 78; O2SAT 100
== END 2023-04-11 13:42 | disposition home or self-care (01) ==
PROVIDERS: Emergency Provider Nurse Practitioner Family
DX: R51.9 Headache, unspecified (principal); F17.210 Nicotine dependence, cigarettes, uncomplicated
CPT/HCPCS: 70450; 80053; 81003; 84703; 85025; 96361; 96374; 96375; 99285; J1100; J1200; J2765; J7030

== ENCOUNTER → 2023-04-30 11:18 | Outpatient (BNVA) | payer BC, MEDICAID, SELFPAY | PROVIDERS: Visit Provider Family Medicine | DX: J02.9 Acute pharyngitis, unspecified (principal); Z20.822 Contact with and (suspected) exposure to COVID-19 | CPT/HCPCS: 87426; 87880 ==

== ENCOUNTER 2023-11-21 10:13 | Emergency (ER) | payer MEDICAID, SELFPAY ==
[2023-11-21 10:18] VITALS: BP 128/52; PULSE 77; RESP 15; TEMP 36.6; O2SAT 100; BMI 31.6
[2023-11-21 10:51] VITALS: PULSE 78; O2SAT 100
[2023-11-21 11:21] VITALS: BP 134/90; PULSE 79; O2SAT 100
[2023-11-21 11:39] LABS: Basophils # 0.1 10^3/uL (0.0-0.1); Eosinophils # 0.1 10^3/uL (0.0-0.8); Eosinophils % 1.5 %; Hematocrit 43.2 % (36-47); Lymphocytes # 2.3 10^3/uL (0.8-4.8); Mean Corpuscular HGB Conc 33.1 g/dL (30-55); Mean Corpuscular Volume 87.6 fl (85-98); Mean Platelet Volume 10.8 fL (7.4-10.4); Monocytes # 0.7 10^3/uL (0.2-0.9); Monocytes % 7.4 %; Neutrophils # 5.63 10^3/uL (1.8-7.7); Neutrophils % 63.8 %; Nucleated Red Blood Cells % 0 %; Platelet Count 313 10^3/cmm (157-399); Red Blood Count 4.93 10^6/uL (3.85-5.65); Red Cell Distribution Width 13.9 % (12.1-15.1); White Blood Count 8.83 10^3/uL (3.29-11.43)
--- NOTE | 2023-11-21 11:42 | US_ITS ---
WS: [id number] EARLY OBSTETRICAL ULTRASOUND (<14 WEEKS). HISTORY: threatened miscarriage COMPARISON: None available. Single intrauterine gestational sac is identified. Cardiac activity at 135 BPM. Tropic-rump length haydee sures 1.2 cm which corresponds to a gestation of 7w3d. Normal-appearing yolk sac and amnion demonstra marc. No subchorionic hemorrhage. Tiny physiologic amount of free fluid in the cul-de-sac. Corpus luteal cyst LEFT ovary measures 1.7 x 1.8 x 1.9 cm. Cervix is closed. IMPRESSION: 1. Single intrauterine gestation of 7w3d with an EDC of 07/06/2024. 2. Normal cardiac activity.
--- NOTE | 2023-11-21 11:43 | ED_ITS ---
HPI - 2 General: Chief complaint: Vaginal Bleeding Stated complaint: spotting & side pain 8 weeks preg Time Seen by Provider: 11/21/23 11:31 Source: patient Mode of arrival: ambulatory Limitations: no limitations History of Present Illness: 32-year-old female who is currently 7 we eks states she is has noticed some blood on toilet paper when she wipes had some cramping lower abdominal pain. She has had a cholecystectomy and appendectomy. She denies any dysuria she is has had vomiting with the . Denies any diarrhea. Associated symptoms: Reports vomiting; Deny abdominal pain, headache(s) or nausea Review of Systems 2 Const: Denies: fever(s), chills, body aches or change in appetite ENMT: Denies: throat pain or dental pain Card: Denies: chest pain Resp: Denies: dyspnea GI: Reports: vomiting; Denies: abdominal pain, nausea or diarrhea : Reports: vaginal bleeding Musc: Denies: neck pain or back pain Skin/Breast: Denies: rash Neuro: Denies: headache(s) PFSH ED 2 PFSH: Medical History PCOS (polycystic ovarian syndrome) Surgical History H/O laparoscopy S/P appendectomy S/P cholecystectomy Family History Mother Diabetes Hyperlipidemia Hypertension Thyroid condition Grandmother Heart disease maternal Family/Other Breast cancer maternal cousins x3, age onset in 40's Denies family history of Colon cancer Ovarian cancer Clotting disorder Anesthesia complication Bleeding disorder Uterine cancer Stroke Social History Smoking and tobacco/nicotine status: current every day tobacco/nicotine user Alcohol intake: never Substance/Drug Use: never Adopted: No Caregiver/support person: No Lives independently: No Household members: spouse Marital status: service: No Current occupational status: unemployed Sexually active: Yes Do you think of yourself as: Straight/Heterosexual Current gender identity: Female Physical Exam 2 Const: COMMON NORMALS: no acute distress, patient oriented x3 and healthy appearing HENMT: COMMON NORMALS: normocephalic and atraumatic HEAD & SCALP: n ormocephalic and atraumatic Eye: COMMON NORMALS: Equal, round and reactive pupils present and EOMs intact bilaterally PUPIL: Yes Equal, round and reactive pupils present Neck/C-Spine: COMMON NORMALS: full ROM and supple Chest: COMMONS NORMALS: normal inspection of the chest and normal palpation of entire chest wall Resp: COMMON NORMALS: normal respiratory effort, No retractions, No use of accessory muscles and clear to auscultation bilaterally AUSCULTATION: clear to auscultation bilaterally Cardio: COMMON NORMALS: regular rate, regular rhythm and No murmurs present (Cardio) RATE: regular rate RHYTHM: regular rhythm GI: COMMON NORMALS: Normal to inspection, nondistended, normoactive bowel sounds present, Soft to palpation, non-tender and no masses PALPATION: Yes Soft to palpation Extremity: COMMON NORMALS: normal to inspection and full ROM Neuro: COMMON NORMALS: patient oriented x3, moves all extremities and no focal motor deficits Psych: COMMON NORMALS: mental status grossly normal, Normal thought process present and cooperative THOUGHT PROCESS: Normal thought process present Skin: COMMON NORMALS: no rashes or lesions noted and no wounds GENERAL SKIN EXAM: no rashes or lesions noted Course 2 Vital Signs: Vital signs: Vital Signs Temperature 98 F 11/21/23 10:18 Pulse Rate 69 11/21/23 12:11 Respiratory Rate 15 11/21/23 10:18 Blood Pressure 134/90 11/21/23 11:21 Pulse Oximetry 97 11/21/23 12:11 Oxygen Delivery Me thod Room Air 11/21/23 12:11 MDM - OB/Uterine Contractions Medical Decision Making Patient presents here some vaginal bleeding is very minimal her ultrasound here showed IUP with good heart rate her exam here is benign she is stable for discharge she is followed by OB return if worsening. Medical Records I reviewed the patient's medical records. Lab Data I reviewed the patient's lab results. 11/21/23 11:34 11/21/23 11:34 Laboratory Results WBC 8.83 10^3/uL (3.29-11.43) 11/21/23 11:34 RBC 4.93 10^6/uL (3.85-5.65) 11/21/23 11:34 Hgb 14.30 g/dL (11.27-16.99) 11/21/23 11:34 Hct 43.2 % (36-47) 11/21/23 11:34 MCV 87.6 fl (85-98) 11/21/23 11:34 MCH 29.0 pg (27-33) 11/21/23 11:34 MCHC 33.1 g/dL (30-55) 11/21/23 11:34 RDW 13.9 % (12.1-15.1) 11/21/23 11:34 Plt Count 313 10^3/cmm (157-399) 11/21/23 11:34 MPV 10.8 fL (7.4-10.4) H 11/21/23 11:34 Neut % (Auto) 63.8 % 11/21/23 11:34 Lymph % (Auto) 26.0 % 11/21/23 11:34 [place] % (Auto) 7.4 % 11/21/23 11:34 Eos % (Auto) 1.5 % 11/21/23 11:34 Baso % (Auto) 1.0 % 11/21/23 11:34 Neut # (Auto) 5.63 10^3/uL (1.8-7.7) 11/21/23 11:34 Lymph # (Auto) 2.3 10^3/uL (0.8-4.8) 11/21/23 11:34 [place] # (Auto) 0.7 10^3/uL (0.2-0.9) 11/21/23 11:34 Eos # (Auto) 0.1 10^3/uL (0.0-0.8) 11/21/23 11:34 Baso # (Auto) 0.1 10^3/uL (0.0-0.1) 11/21/23 11:34 Nucleated RBC % (auto) 0 % 11/21/23 11:34 Nucleated RBCs # 0.0 /100WBC 11/21/23 11:34 Sodium 137 mmol/L (136-145) 11/21/23 11:34 Potassium 4.3 mmol/L (3.5-5.1) 11/21/23 11:34 Chloride 103 mmol/L (98-107) 11/21/23 11:34 Carbon Dioxide 21 mmol/L (22-29) L 11/21/23 11:34 Anion Gap 17.3 (5-19) 11/21/23 11:34 BUN 8 mg/dL (6-20) 11/21/23 11:34 Creatinine 1.0 mg/dL (0.5-0.9) H 11/21/23 11:34 GFR Calculation 63.9 mL/min (90-130) L 11/21/23 11:34 Glucose 75 mg/dL (65-115) 11/21/23 11:34 Calculated Osmolality 281 mOsm/kg (285-295) L 11/21/23 11:34 Calcium 9.3 mg/dL (8.5-10.5) 11/21/23 11:34 Ser , Semi-Qnt 96456.00 mIU/mL 11/21/23 11:34 Urine Color Yellow (Yellow) 11/21/23 11:46 Urine Appearance Clear (CLEAR) 11/21/23 11:46 Urine pH 6.5 (5-7) 11/21/23 11:46 Ur Specific [place] 1.005 (1.005-1.030) 11/21/23 11:46 Urine Protein Neg (Negative) 11/21/23 11:46 Urine Glucose (UA) Norm (Normal) 11/21/23 11:46 Urine Ketones Negative (Negative) 11/21/23 11:46 Urine Blood Neg (Negative) 11/21/23 11:46 Urine Nitrate Negative (Negative) 11/21/23 11:46 Urine Bilirubin Neg (Negative) 11/21/23 11:46 Urine Urobilinogen Norm mg/dL (Negative) 11/21/23 11:46 Ur Leukocyte Esterase Negative (Negative) 11/21/23 11:46 All radiology interpretation(s) finalized by discharge Discharge Plan Discharge Patient Disposition: Home Clinical Impression: Threatened miscarriage Condition: Stable Prescriptions: No Action ibuprofen 200 mg Tablet 400 - 600 mg PO Q6H PRN (Reason: Pain) Prena-Tab 65 mg iron- 1 mg Tablet 1 tab PO QPM Discharge Orders: Discharge ED (Routine); Ordered 11/21/23 Ordered By: Sanjuanita Alex Discharge Diet: Advance as tolerated Discharge Activity: Resume usual activity Patient Instructions: Threatened Miscarriage (ED) Coding Level of Care Code ED Dispute Resolution Specialist for Franca De Leon
[2023-11-21 11:52] LABS: Add Urine Microscopic? NO; Charge for UA Resulting for Rev
[2023-11-21 11:59] LABS: Bilirubin Urine Neg (Negative); Blood Urine Neg (Negative); Glucose Urine UA Norm (Normal); Ketones Urine Negative (Negative); Leukocyte Esterase Urine Negative (Negative); Nitrate Urine Negative (Negative); Protein Urine Neg (Negative); Specific Gravity, Urine 1.005 (1.005-1.030); Urine Appearance Clear (CLEAR); Urine Color Yellow (Yellow); Urobilinogen Urine Norm (Negative); pH Urine 6.5 (5-7)
[2023-11-21] MEDS: metoclopramide 10 mg Tablet PO (12:02)
[2023-11-21 12:08] LABS: Anion Gap 17.3 (5-19); Blood Urea Nitrogen 8 mg/dL (6-20); Calcium 9.3 mg/dL (8.5-10.5); Carbon Dioxide 21 mmol/L (22-29); Chloride 103 mmol/L (98-107); Creatinine Clr Calc Pharmacy 92.9842; Glomerular Filtration Rate 63.9 mL/min (90-130); Glucose 75 mg/dL (65-115); Osmolality Calculated 281 mOsm/kg (285-295); Potassium 4.3 mmol/L (3.5-5.1); Sodium 137 mmol/L (136-145)
[2023-11-21 12:11] VITALS: PULSE 69; O2SAT 97
[2023-11-21 12:51] VITALS: BP 99/66; PULSE 65; O2SAT 99
== END 2023-11-21 12:52 | disposition home or self-care (01) ==
PROVIDERS: Emergency Provider Emergency Medicine
DX: O20.0 Threatened abortion (principal); O99.331 Smoking (tobacco) complicating pregnancy, first trimester; Z3A.01 Less than 8 weeks gestation of pregnancy
CPT/HCPCS: 36415; 76817; 80048; 81003; 84702; 85025; 99283; J8597

== ENCOUNTER 2024-04-24 21:33 | Observation (INO) | payer MEDICAID, SELFPAY ==
[2024-04-24] VITALS (16 sets, daily range): BP systolic 105–126; BP diastolic 56–73; PULSE 71–102; RESP 18; TEMP 36.3; O2SAT 100; BMI 31.1
[2024-04-24] MEDS: acetaminophen 500 mg Tablet 1000 MG PO (18:13)
[2024-04-24 18:16] LABS: Bilirubin Urine Neg (Negative); Blood Urine 2+ (Negative); Glucose Urine UA Norm (Normal); Ketones Urine Negative (Negative); Leukocyte Esterase Urine 2+ (Negative); Nitrate Urine Positive (Negative); Protein Urine 1+ (Negative); Specific Gravity, Urine 1.005 (1.005-1.030); Urine Appearance Slightly Cloudy (CLEAR); Urine Color Yellow (Yellow); Urobilinogen Urine Neg (Negative); pH Urine 7 (5-7)
[2024-04-24 18:17] LABS: WBC Urine 40-55 /hpf (0-5)
[2024-04-24 18:18] LABS: Add Urine Culture? Yes; Bacteria Urine 3+ /hpf; Mucus Urine 2+ /hpf
[2024-04-24] MEDS: betamethasone susp 6 mg/mL 1 mL (per mL) 12 MG IM (18:22)
[2024-04-24] MEDS: lactated ringers 1,000 ML 999 ML IV ×2 (18:29→19:32)
[2024-04-24] MEDS: nitrofurantoin SR (BID) 100 mg Capsule PO (18:57)
[2024-04-24] MEDS: terbutaline 1 mg/mL INJ 0.25 MG SUBCUT (19:54)
--- NOTE | 2024-04-24 20:58 | PM.OBGYHP ---
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 As a part of her evaluation she was noted to be 2 cm dilated and about 70% effaced. She was worked up and found to have a urinary tract infection. She was rechecked a couple of hours later and found to have dilated to 3 cm. As result she was admitted overnight. Tocolytics were placed. Steroids were given and she was placed on GBS protocol. Thankfully, her contractions quickly diminished and were no longer present after initial dose of terbutaline was given. Later she was given Procardia XL 30 mg. She was monitored through the night and had only 1 more contraction that she did not feel. The baby had good accelerations with good long and short term variability throughout the night. When she was rechecked in the morning her cervical exam was still 3 cm but was found to be about 60% effaced. There were no changes, and it was possibly a little less effaced than previously. As result she will be discharged home. Please consider this a short stay summary. Present Details : 19 Para: 3 Review of Systems General: Reports: 10 or more systems reviewed and unremarkable except in HPI and below Const: Reports: fatigue; Denies: fever(s) Eyes: Denies: change in vision Card: Denies: chest pain : Denies: dysuria Musc: Reports: back pain Calvin/Lymph: Denies: easy bruising Medications/Allergies Home Medications Medication Instructions Recorded Confirmed Last Taken Type vitamins-iron fumarate 65 1 tab PO QPM 11/21/23 11/21/23 11/20/23 History mg iron-folic acid 1 mg tablet nifedipine 30 mg tablet,extended 30 mg PO BEDTIME #30 tabs 04/25/24 Unknown Rx release 24 hr nitrofurantoin macrocrystal 100 mg 100 mg PO BID 7 days #14 caps 04/25/24 Unknown Rx capsule (Macrodantin) Allergies Allergy/AdvReac Type Severity Reaction Status Date / Time cefaclor [From [facility]] Allergy Severe rash and Verified 11/21/23 11:47 tingling in throat 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 PFSH: Medical History PCOS (polycystic ovarian syndrome) Surgical History S/P appendectomy S/P cholecystectomy H/O laparoscopy Family History Mother Diabetes Hyperlipidemia Hypertension Thyroid disease Grandmother Heart disease maternal Family/Other Breast cancer maternal cousins x3, age onset in 40's Denies family history of Colon cancer Ovarian cancer Clotting disorder Anesthesia complication Bleeding disorder Uterine cancer Stroke Social History Smoking and tobacco/nicotine status: current every day tobacco/nicotine user Alcohol intake: never Substance/Drug Use: never Adopted: No Caregiver/support person: No Lives independently: No Household members: spouse Marital status: service: No Current occupational status: unemployed Sexually active: Yes Do you think of yourself as: Straight/Heterosexual Current gender identity: Female Personal Safety: Do you feel safe at home: Yes Victim of physical abuse: No Victim of emotional abuse: No Victim of sexual abuse: No Would you like help information on resources?: No History History History 17 Term 0 2 Miscarriages/Ectopic 14 Living Children 1 Vitals/I&O/Wt Last Vital Signs Temp 97.3 F L 04/24/24 20:46 Pulse 94 04/24/24 20:31 BP 121/71 04/24/24 20:27 Pulse Ox 100 04/24/24 20:31 Weight last 48 hrs Weight 199 lb Physical Exam Narrative: On my exam the cervix is noted to be 3 cm dilated and 60% effaced Const: COMMON NORMALS: patient oriented x3 and alert HENMT: COMMON NORMALS: moist oral mucous membranes HEAD & SCALP: normal to inspection Chest: COMMONS NORMALS: normal inspection of the chest Resp: COMMON NORMALS: clear to auscultation bilaterally AUSCULTATION: clear to auscultation bilaterally Cardio: COMMON NORMALS: regular rate and regular rhythm RATE: regular rate RHYTHM: regular rhythm GI: INSPECTION: Yes normal to inspection and Yes other (Gravid) : MANUAL OB EXAM: dilated 3 cm and effaced Extremity: COMMON NORMALS: normal to inspection GENERAL: Yes edema (Trace) Neuro: COMMON NORMALS: patient oriented x3, moves all extremities and no sensory deficits noted SENSORIUM/ORIENTATION: Yes alert Psych: COMMON NORMALS: mental status grossly normal Skin: COMMON NORMALS: no rashes or lesions noted GENERAL SKIN EXAM: no rashes or lesions noted Results Labs OB ([facility]): Obstetrics US/Biophysical Profile 02/20/22 Hct 43.2 % (36-47) 11/21/23 Hgb 14.30 g/dL (11.27-16.99) 11/21/23 Plt Count 313 10^3/cmm (157-399) 11/21/23 Gest Glucose Tolerance 112 mg/dL 11/24/21 Ser , Semi-Qnt 96532.00 mIU/mL 11/21/23 HCG, Qual Negative (Negative) 04/11/23 Urine Opiates Screen Negative ng/mL (Negative) 10/30/21 Ur Barbiturates Screen Negative ng/mL (Negative) 10/30/21 Ur Phencyclidine Scrn Negative ng/mL (Negative) 10/30/21 Ur Amphetamines Screen Negative ng/mL (Negative) 10/30/21 U Benzodiazepines Scrn Negative ng/mL (Negative) 10/30/21 Urine Cocaine Screen Negative ng/mL (Negative) 10/30/21 U Marijuana (THC) Screen Negative ng/mL (Negative) 10/30/21 Micro Urine Specimen 04/24/24 A&P Assessment and plan (1) labor in third trimester: Thankfully, the patient responded to tocolytics. Unfortunately, her cervix has dilated. We will monitor her carefully over the last upcoming weeks. She will go home on antibiotics for her urinary tract infection, and we will revisit her antibiotic after the culture returns. 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 She is not getting that sleep currently, and not eating well enough either. We discussed reasons to return to the hospital. She understands that she needs to have a quick trigger to return. Attestations Medical Necessity Statement*: The patient required a 1 night stay due to having cervical change at 29 weeks estimated gestational age. Coding Level of Care Code Acute Code for Chg Fwd Diagnoses labor in third trimester O60.03
[2024-04-24] MEDS: ampicillin 2,000 MG in sodium chloride 0.9% (plus) 50 ML 100 MG IV (21:57)
[2024-04-24] MEDS: dextrose 5%-lactated ringers 1,000 ML 125 ML IV (21:58)
[2024-04-24] MEDS: NIFEdipine ER (24 hr) 30 mg Tablet PO (21:58)
[2024-04-25 00:27] VITALS: BP 107/53; PULSE 89; TEMP 36.6
[2024-04-25] MEDS: ampicillin 1,000 MG in sodium chloride 0.9% (plus) 50 ML 100 MG IV ×2 (02:07→06:05)
[2024-04-25 04:21] VITALS: TEMP 35.8
[2024-04-25 04:22] VITALS: BP 107/52; PULSE 75
[2024-04-25] MEDS: dextrose 5%-lactated ringers 1,000 ML 125 ML IV (07:35)
[2024-04-25 09:00] VITALS: BP 108/55; PULSE 78; RESP 16; TEMP 36.6
[2024-04-25 09:08] VITALS: BP 108/55; PULSE 78; RESP 16; TEMP 36.6
== END 2024-04-25 09:08 | disposition home or self-care (01) ==
LOC: OPOB 04-25 09:34 → OBGYN 04-25 09:34
PROVIDERS: Admitting Provider Family Medicine; Visit Provider Family Medicine
DX: O60.03 Preterm labor without delivery, third trimester (principal); Z3A.29 29 weeks gestation of pregnancy; O99.333 Smoking (tobacco) complicating pregnancy, third trimester; N39.0 Urinary tract infection, site not specified
CPT/HCPCS: 59025; 81001; 87086; 96372; 99211; G0378; J0290; J0702; J3105; J7120; J7121

== ENCOUNTER 2024-04-25 17:40 | Outpatient (CLI) | payer MEDICAID, SELFPAY ==
[2024-04-25 17:40] VITALS: BMI 31.1
[2024-04-25 18:00] VITALS: BP 103/54; PULSE 90; RESP 16; TEMP 36.5
[2024-04-25] MEDS: betamethasone susp 6 mg/mL 1 mL (per mL) 12 MG IM (18:00)
[2024-04-25 18:03] VITALS: BP 103/54; PULSE 90
== END 2024-04-25 18:03 | disposition home or self-care (01) ==
LOC: OPOB 17:46 → OBGYN 17:47
PROVIDERS: Visit Provider Family Medicine
DX: O26.899 Other specified pregnancy related conditions, unspecified trimester (principal); Z3A.00 Weeks of gestation of pregnancy not specified
CPT/HCPCS: 59025; 96372; 99211; J0702

== ENCOUNTER 2024-05-22 13:40 | Outpatient (CLI) | payer MEDICAID, SELFPAY ==
[2024-04-25 18:00] VITALS: RESP 16; TEMP 36.5
[2024-05-22 13:52] VITALS: BP 131/73; PULSE 88
[2024-05-22 14:00] VITALS: BMI 27.7
[2024-05-22 14:12] VITALS: BP 119/69; PULSE 86
== END 2024-05-22 14:30 | disposition home or self-care (01) ==
LOC: OPOB 13:44 → OBGYN 13:45
PROVIDERS: Visit Provider Family Medicine
DX: O26.899 Other specified pregnancy related conditions, unspecified trimester (principal); Z3A.00 Weeks of gestation of pregnancy not specified; Z87.59 Personal history of other complications of pregnancy, childbirth and the puerperium
CPT/HCPCS: 59025; 99211

== ENCOUNTER 2024-05-29 13:46 | Outpatient (CLI) | payer MEDICAID, SELFPAY ==
[2024-05-29 13:53] VITALS: RESP 18
[2024-05-29 13:54] VITALS: BP 137/78; PULSE 93
[2024-05-29 13:59] VITALS: RESP 18; BMI 31.1
[2024-05-29 14:10] VITALS: BP 125/71; PULSE 85
== END 2024-05-29 14:22 | disposition home or self-care (01) ==
LOC: OPOB 13:48 → OBGYN 13:49
PROVIDERS: Visit Provider Family Medicine
DX: O26.899 Other specified pregnancy related conditions, unspecified trimester (principal); Z3A.00 Weeks of gestation of pregnancy not specified; Z87.59 Personal history of other complications of pregnancy, childbirth and the puerperium
CPT/HCPCS: 59025

== ENCOUNTER 2024-06-07 18:02 | Outpatient (CLI) | payer MEDICAID, SELFPAY ==
[2024-06-07] VITALS (8 sets, daily range): BP systolic 111–119; BP diastolic 64–77; PULSE 78–90; RESP 16–18
[2024-06-07 18:32] LABS: Nitrazine Paper, PH Negative
== END 2024-06-07 19:20 | disposition home or self-care (01) ==
LOC: OPOB 18:02 → OBGYN 18:03
PROVIDERS: Visit Provider Family Medicine
DX: O36.8190 Decreased fetal movements, unspecified trimester, not applicable or unspecified (principal); Z3A.00 Weeks of gestation of pregnancy not specified; N89.8 Other specified noninflammatory disorders of vagina
CPT/HCPCS: 59025; 83986; 99211

== ENCOUNTER 2024-06-17 19:52 | Inpatient (IN) | payer MEDICAID, SELFPAY ==
[2024-06-17] VITALS (17 sets, daily range): BP systolic 98–139; BP diastolic 59–81; PULSE 77–90
[2024-06-17 19:40] LABS: Basophils # 0.1 10^3/uL (0.0-0.1); Basophils % 0.4 %; Eosinophils # 0.1 10^3/uL (0.0-0.8); Eosinophils % 0.7 %; Hematocrit 37.7 % (36-47); Lymphocytes # 2.4 10^3/uL (0.8-4.8); Lymphocytes % 17.6 %; Mean Corpuscular HGB Conc 32.9 g/dL (30-55); Mean Corpuscular Volume 88.1 fl (85-98); Mean Platelet Volume 11.6 fL (7.4-10.4); Monocytes # 0.7 10^3/uL (0.2-0.9); Neutrophils # 10.45 10^3/uL (1.8-7.7); Neutrophils % 75.6 %; Nucleated Red Blood Cells % 0 %; Platelet Count 351 10^3/cmm (157-399); Red Blood Count 4.28 10^6/uL (3.85-5.65); Red Cell Distribution Width 13.4 % (12.1-15.1); White Blood Count 13.81 10^3/uL (3.29-11.43)
[2024-06-17] MEDS: lactated ringers 1,000 ML 999 ML IV (21:38)
[2024-06-17] MEDS: oxytocin 30 UNIT/500 ML BAG 600 UNIT IV (21:54)
--- NOTE | 2024-06-17 22:15 | P.PCNOB_ITS ---
Delivery Note: Date of delivery: June 17, 2024 Pre-delivery diagnoses: 33-year-old multigravida female at 37 we eks and 5 days presenting having contractions with a cervix that is 5 cm dilated. Post-delivery diagnoses: Status post spontaneous vaginal delivery Procedure: Spontaneous vaginal delivery Delivering Physician: Evans Daniel Estimated blood loss (mL): 50 Pre-Delivery Course: The patient presented to the hospital with her cervix being dilated to 5 cm and 80% effaced. She was having irregular contractions. Due to her history of rapid labors and how dilated her cervix was, I elected to rupture her membranes. She then quickly progressed to complete. Delivery: DELIVERY: The patient progressed to complete without difficulty. She delivered a female with a weight of 5 pounds 5 ounces with Apgars of 8, 9. The baby was delivered from the BRENDA position and placed on the mother's abdomen. The cord was then clamped and cut. There was a nuchal cord x 1 which was easily reduced over the head prior to delivery of the body. There was no meconium. The placenta and 3 vessel cord were delivered intact shortly thereafter. The perineum and vaginal vault were carefully examined. A superficial posterior midline vaginal tear was noted there was minimal bleeding and no repair was required.. Both the mother and the baby were in stable condition. Post-Delivery Status: Good History History History 17 Term 0 2 Miscarriages/Ectopic 14 Living Children 1 A&P Assessment and plan (1) Spontaneous vaginal delivery: I anticipate routine care (2) 37 weeks gestation of : Coding Level of Care Code Acute Code for Chg Fwd Diagnoses Spontaneous vaginal delivery O80 37 weeks gestation of Z3A.37
--- NOTE | 2024-06-17 22:19 | PM.OPHPUD ---
Labor & Delivery H&P Update Date of Procedure: June 17, 2024 Date H&P Performed: 06/16/24 Changes to previous documentation: Cervix dilated to 5 cm and 80% effaced. Admission Diagnosis: 33-year-old 17 para 0 214 1 at 37 weeks and 4 days presenting in active labor Planned procedure: Vaginal delivery Other information: The patient is a 33-year-old female with a history of labors who presented to the hospital 37 weeks having intermittent contractions. Her cervical exam demonstrated a cervix that was dilated to 5 cm dilated and 80% effaced. Her membranes were intact. Other than the patient's known history of labor and delivery, the patient had an unremarkable . Her labs were as follows. Her blood type is O+. Her antibody screen was negative. She was GBS negative. She passed her glucose screen. She is rubella nonimmune. The remainder infectious disease profile is within normal limits.
[2024-06-18] VITALS (10 sets, daily range): BP systolic 103–116; BP diastolic 67–75; PULSE 60–88; RESP 14–17; TEMP 36.7–36.9; O2SAT 97–100
[2024-06-18] MEDS: HYDROcodone-acetaminophen 5-325 mg Tablet PO ×2 (00:26→06:30)
--- NOTE | 2024-06-18 07:04 | P.DS_ITS ---
Discharge Providers INTERVENTIONAL RADIOLOGY TECH Date of Admission: 06/17/24 19:52 Date of Discharge: 06/18/24 Attending Provider at Admission: Evans Daniel MD Attending Provider at Discharge: Evans Daniel MD Diagnoses at Discharge Discharge Diagnosis (1) Spontaneous vaginal delivery: Status: Acute (2) 37 weeks gestation of : Status: Acute Reason for Visit Reason for Visit: contractions, pressure, possible rupture membranes Hospital Course Hospital Course Patient presented to the hospital 5 cm dilated 80% effaced with inconsistent contractions. Membranes were ruptured. She then quickly progressed to complete and had an unremarkable delivery of a healthy appearing female . The delivery was unremarkable. There was a nuchal cord x 1. She had a first-degree posterior midline tear that did not require repair. Her course has been unremarkable. Her bleeding has been within normal limits. Her pain is been well-controlled. There have been no concerns. Information Peripartum Data: Delivery Method: Vaginal Physical Exam Narrative: The patient is alert. She appears comfortable. Her heart has a regular rate and rhythm with no murmurs appreciated. Lungs are clear to auscultation bilaterally. Her fundus is firm and below the umbilicus. History History History 17 Term 0 2 Miscarriages/Ectopic 14 Living Children 1 Discharge Data Studies Completed and Pending Pending at discharge Category Date Time Status Hemagram Timed Lab 06/18/24 10:14 Uncollected Laboratory Results WBC 13.81 10^3/uL (3.29-11.43) H 06/17/24 18:45 RBC 4.28 10^6/uL (3.85-5.65) 06/17/24 18:45 Hgb 12.40 g/dL (11.27-16.99) 06/17/24 18:45 Hct 37.7 % (36-47) 06/17/24 18:45 MCV 88.1 fl (85-98) 06/17/24 18:45 MCH 29.0 pg (27-33) 06/17/24 18:45 MCHC 32.9 g/dL (30-55) 06/17/24 18:45 RDW 13.4 % (12.1-15.1) 06/17/24 18:45 Plt Count 351 10^3/cmm (157-399) 06/17/24 18:45 MPV 11.6 fL (7.4-10.4) H 06/17/24 18:45 Neut % (Auto) 75.6 % 06/17/24 18:45 Lymph % (Auto) 17.6 % 06/17/24 18:45 [place] % (Auto) 5.0 % 06/17/24 18:45 Eos % (Auto) 0.7 % 06/17/24 18:45 Baso % (Auto) 0.4 % 06/17/24 18:45 Neut # (Auto) 10.45 10^3/uL (1.8-7.7) H 06/17/24 18:45 Lymph # (Auto) 2.4 10^3/uL (0.8-4.8) 06/17/24 18:45 [place] # (Auto) 0.7 10^3/uL (0.2-0.9) 06/17/24 18:45 Eos # (Auto) 0.1 10^3/uL (0.0-0.8) 06/17/24 18:45 Baso # (Auto) 0.1 10^3/uL (0.0-0.1) 06/17/24 18:45 Nucleated RBC % (auto) 0 % 06/17/24 18:45 Nucleated RBCs # 0.0 /100WBC 06/17/24 18:45 Blood Type O Positive 06/17/24 18:45 Rho(D) Type Rh positive 06/17/24 18:45 Antibody Screen Negative 06/17/24 18:45 Vitals Last Vital Signs Temp 98.4 F 06/18/24 02:45 Pulse 74 06/18/24 05:45 Resp 15 06/18/24 05:45 BP 103/67 06/18/24 05:45 Pulse Ox 97 06/18/24 05:45 O2 Del Method Room Air 06/17/24 19:08 Results Labs OB ([facility]): Blood Type O Positive 06/17/24 Antibody Screen Negative 06/17/24 Hct 37.7 % (36-47) 06/17/24 Hgb 12.40 g/dL (11.27-16.99) 06/17/24 Rho(D) Type Rh positive 06/17/24 Plt Count 351 10^3/cmm (157-399) 06/17/24 Ser , Semi-Qnt 25964.00 mIU/mL 11/21/23 HCG, Qual Negative (Negative) 04/11/23 Discharge Plan Discharge Patient Disposition: Home Condition: Stable Prescriptions: New ibuprofen 800 mg Tablet 800 mg PO TID Qty: 45 0RF Continued vit-iron fum-folic ac 65 mg iron- 1 mg Tablet 1 tab PO QPM Discontinued nifedipine 30 mg Tablet Extended Release 24hr 30 mg PO BEDTIME Qty: 30 0RF Discharge Orders: Discharge Order (Routine); Ordered 06/18/24 Ordered By: Evans Daniel Referrals: Evans Daniel MD [Physician] - 6 Weeks Discharge Diet: Usual diet Discharge Activity: Limit activity as instructed Patient Instructions: Opioid Safety Discharge Attestations INTERVENTIONAL RADIOLOGY TECH Time Spent in Discharge Care*: less than 30 min Coding Level of Care Code Acute Code for Chg Fwd Diagnoses Spontaneous vaginal delivery O80 37 weeks gestation of Z3A.37
[2024-06-18] MEDS: docusate sodium 100 mg Capsule PO ×2 (09:54→17:38)
[2024-06-18] MEDS: lanolin oint 7 gm 1 APPLIC TOPICAL (09:54)
[2024-06-18] MEDS: ibuprofen 800 mg tablet PO ×3 (09:54→21:52)
[2024-06-18 10:26] LABS: Hematocrit 30.6 % (36-47); Mean Corpuscular HGB Conc 32.7 g/dL (30-55); Mean Corpuscular Volume 88.7 fl (85-98); Mean Platelet Volume 11.1 fL (7.4-10.4); Platelet Count 298 10^3/cmm (157-399); Red Blood Count 3.45 10^6/uL (3.85-5.65); Red Cell Distribution Width 13.2 % (12.1-15.1); White Blood Count 13.95 10^3/uL (3.29-11.43)
[2024-06-18] MEDS: benzocaine-menthol 78 gm Canister 1 SPRAY TOPICAL (17:38)
== END 2024-06-18 22:29 | disposition home or self-care (01) | DRG 807 ==
LOC: OPOB 19:54 → OBGYN 19:54
PROVIDERS: Admitting Provider Family Medicine; PCP Family Medicine; Visit Provider Family Medicine
DX: O69.81X0 Labor and delivery complicated by cord around neck, without compression, not applicable or unspecified (principal); Z37.0 Single live birth; Z3A.37 37 weeks gestation of pregnancy
CPT/HCPCS: 36415; 59025; 59409; 85025; 85027; 86850; 86900; 98960; 99211; J2590; J7120